=== PATIENT | female | born 1945 | race Caucasian/White ===

== ENCOUNTER → 2016-11-08 | Outpatient (CLI) | payer OTHER ==
--- NOTE | 2016-11-09 08:21 | MAMMOGRAPHY REPORT ---
BILATERAL DIGITAL SCREENING MAMMOGRAM WITH CAD: 11/08/2016 CLINICAL HISTORY: Routine screening. Patient has no complaints. TECHNIQUE: Bilateral CC and MLO views were obtained. Current study was also evaluated with a Compute r Aided Detection (CAD) system. COMPARISON: Comparison is made to exams dated: 10/27/2015 mammogram, 10/13/2014 mammogram, 10/10/2013 m ammogram, 10/05/2012 mammogram, 10/05/2011 mammogram, and 09/24/2010 mammogram - [facility] nter. BREAST COMPOSITION: The tissue of both breasts is heterogeneously dense, which may obscure small mas ses. FINDINGS: There is a focal asymmetry in the upper outer middle to posterior right breast measuring 7 mm. Although this could represent normal overlapping fibroglandular tissue, additional spot lucia jose tomosynthesis views and possibly ultrasound are recommended. An increasingly prominent asymmetr y is seen in the far posterior superior right breast on the MLO view. Additional spot compression to mosynthesis views and possibly ultrasound are also recommended. This is thought to project in the 12 :00 axis. No other suspicious mass, architectural distortion or cluster of microcalcifications is seen bilatera lly. IMPRESSION: ACR BI-RADS CATEGORY 0: INCOMPLETE EVALUATION: NEED ADDITIONAL IMAGING EVALUATION The right breast asymmetries need additional imaging evaluation. The patient will be called to schedule an appointment. Approximately 10% of breast cancers are not detected with mammography. A negative mammographic report should not delay biopsy if a clinically suggestive mass is present. Jossie Cosme M.D. ay/:11/08/2016 17:29:55 Oracle Fusion Middleware Architect: Marilynn CALIXTO(R)(M), [facility] letter sent: Addl Imaging 0 BI-RADS Code: ACR BI-RADS Category 0: Incomplete Evaluation: Need Additional Imaging Evaluation
== END | disposition home or self-care (01) ==
LOC: C.MAMM 09:38
PROVIDERS: ATTEND Nurse Practitioner Adult Health
DX: Z12.31 Encounter for screening mammogram for malignant neoplasm of breast (principal); N64.89 Other specified disorders of breast

== ENCOUNTER → 2016-11-17 | Outpatient (CLI) | payer OTHER ==
--- NOTE | 2016-11-17 13:39 | MAMMOGRAPHY REPORT ---
UNILATERAL RIGHT DIGITAL DIAGNOSTIC MAMMOGRAM TOMOSYNTHESIS AND TARGETED RIGHT ULTRASOUND: 11/17/2016 CLINICAL HISTORY: Callback from screening mammogram for right breast asymmetry. TECHNIQUE: Breast tomosynthesis in addition to standard 2D mammography was performed. Spot compress ion right CC and MLO 2-D and tomosynthesis images were obtained. COMPARISON: Comparison is made to exams dated: 11/08/2016 mammogram, 10/27/2015 mammogram, 10/13/2014 m ammogram, 10/10/2013 mammogram, 03/06/2013 mammogram, and 03/06/2013 ultrasound - [facility]. BREAST COMPOSITION: The tissue of the right breast is heterogeneously dense, which may obscure small masses. FINDINGS: The previously described focal asymmetry in the right upper outer quadrant effaces on the a dditional views, and has the appearance of normal fibroglandular tissue on the tomosynthesis images. The other asymmetry seen within the right 12:00 posterior breast appears similar to prior exams dati ng back to at least 2011 on the additional views, and is considered benign given long-term stability. No suspicious mass or architectural distortion is noted on the additional views. Targeted ultrasound was performed of the right upper outer quadrant in the region of the right breast asymmetry. Sonographically normal tissue is seen, without evidence of a mass or other suspicious so nographic abnormality. IMPRESSION: ACR BI-RADS CATEGORY 2: BENIGN, TARGETED ULTRASOUND ACR BI-RADS CATEGORY 2: BENIGN The right breast asymmetries efface to a baseline appearance on the additional views, without corresp onding suspicious sonographic abnormalities evident. The asymmetries are benign and compatible with normal fibroglandular tissue. There is no mammographic or targeted sonographic evidence of malignanc y. A 1 year screening mammogram is recommended. The patient has been verbally notified of the result s. Approximately 10% of breast cancers are not detected with mammography. A negative mammographic report should not delay biopsy if a clinically suggestive mass is present. Darlin Yoder M.D. ah/:11/17/2016 10:24:09 Drainage Inspector: Cindy ISSA)(Marianne), [facility] letter sent: Normal 1/2 BI-RADS Code: ACR BI-RADS Category 2: Benign Ultrasound BI-RADS: ACR BI-RADS Category 2: Benign
== END | disposition home or self-care (01) ==
LOC: C.MAMM 09:50
PROVIDERS: ATTEND Nurse Practitioner Adult Health
DX: R92.2 Inconclusive mammogram (principal); N64.89 Other specified disorders of breast

== ENCOUNTER → 2017-12-21 | Outpatient (CLI) | payer OTHER ==
[~2017-12-21] MED LIST: GADAVIST IV PRN
--- NOTE | 2017-12-22 15:41 | MAMMOGRAPHY REPORT ---
BREAST MRI OF BOTH BREASTS: 12/21/2017 CLINICAL HISTORY: Recent ultrasound-guided core needle biopsy of the right 8:00 breast mass which yie lded malignancy. COMPARISON: Comparison is made to exams dated: 11/30/2017 ultrasound biopsy, 11/22/2017 ultrasound, 10/27 mammogram, 11/17/2016 ultrasound, 11/17/2016 mammogram, and 11/08/2016 mammogram - [facility]. Technique: The patient was placed prone in a dedicated breast imaging coil. Precontrast axial T1-deandra ghted, axial T2-weighted fat saturation, and axial T1-weighted fat saturation images were obtained. After the administration of 6.5 mL of Gadavist IV contrast, sequential T1-weighted fat saturation lyn ges were obtained. Subtraction images were obtained of the dynamic contrast enhanced sequences, and 3-D reformations were performed. The [employer] software was used for kinetic analysis. Findings: There is moderate background parenchymal enhancement involving bilateral breasts. In the right 8:00 breast posteriorly, there is an enhancing mass with associated washout kinetics which measures 9 x 7 mm and is consistent with the biopsy-proven malignancy (series 16113 image 85). Susceptibility artif act from a biopsy clip is seen within the mass. There are numerous similar-appearing small foci of enhancement seen scattered throughout both breasts , many of which demonstrate a mixed kinetic pattern including washout kinetics, which likely represen t normal background parenchymal enhancement given the multiplicity and bilaterality; note that the pr esence of multiple scattered enhancing foci decreases the sensitivity of the exam. There is a 4 mm f ocus of enhancement in the left anterior subareolar/9:00 periareolar breast, which is slightly more p rominent compared to the other scattered bilateral enhancing foci (series [id number] image 69). The focus demonstrates a mixed kinetic pattern including washout kinetics. Given that the focus is more promi nent than the other scattered bilateral enhancing foci, second look ultrasound is recommended for fur ther evaluation. There is also a 16 mm area of non-mass enhancement in the left breast at approximat juana 3:00, which also demonstrates a mixed kinetic pattern (series 48301 image 75). Although this cou ld represent normal background enhancement, second look ultrasound is also recommended. There is no evidence of axillary adenopathy. The chest wall structures are negative. Visualized ext ramammary soft tissues are grossly unremarkable. IMPRESSION: ACR BI-RADS CATEGORY 0: INCOMPLETE EVALUATION: NEED ADDITIONAL IMAGING EVALUATION 1. Enhancing 9 mm mass in the right 8:00 posterior breast, consistent with the biopsy-proven maligna ncy. 2. Numerous scattered bilateral foci of enhancement, felt to represent normal background parenchymal enhancement although the numerous foci reduces the sensitivity of the exam. 3. Small 4 mm focus of enhancement in the left anterior subareolar/9:00 breast is more prominent cyndee n the other scattered bilateral enhancing foci. Recommend second look ultrasound for further evaluat ion. If a corresponding suspicious abnormality is seen on ultrasound, then ultrasound-guided biopsy could be performed at that time. At that time, recommend second look ultrasound for 16 mm area of no n-mass enhancement in the left 3:00 breast which may represent normal background enhancement (45-60 m inute time slot). Darlin Yoder M.D. ah/:12/21/2017 16:30:44 Global Creative Chairman: learning program manager, [facility] letter sent: Addl Imaging 0 BI-RADS Code: ACR BI-RADS Category 0: Incomplete Evaluation: Need Additional Imaging Evaluation
== END | disposition home or self-care (01) ==
LOC: C.MRI 12:25
PROVIDERS: ATTEND Surgery
DX: Z01.818 Encounter for other preprocedural examination (principal); C50.511 Malignant neoplasm of lower-outer quadrant of right female breast; Z17.0 Estrogen receptor positive status [ER+]

== ENCOUNTER → 2018-01-03 | Outpatient (CLI) | payer OTHER ==
--- NOTE | 2018-01-03 13:55 | Discharge Instructions ---
Discharge Instructions Procedure Procedure Date: Jan 03, 2018. Reason for visit: Left Enhancement/Non-Mass Enhancement-Poss Bx. Discharge Discharge Date: Jan 03, 2018. Discharge Diagnosis: post left breast ultrasound guided core biopsy 9:00 Instructions Activity Recommendations: Additional Limitations (see below) Return to School/Work: no limitations Recommended Home Diet: No Limitations Provider Instructions: ACTIVITY RECOMMENDATIONS: * No lifting, pushing, pulling or exercising the affected side for three days. RETURN TO SCHOOL/WORK: * You may return to work/school after the procedure, but do not perform any strenuous activities for 24 to 48 hours. MEDICATIONS: * Tylenol (two 325 mg) every four to six hours if needed for mild pain (if not allergic to Tylenol). DIET: * Resume previous diet. SPECIAL CARE INSTRUCTIONS: * Keep biopsy site dry for 24 hours. May shower after 24 hours, but do not soak (bathe) incision. May remove Tegaderm (plastic patch) 24 hours after procedure * Leave the steri-strips on for one week. Allow the steri-strips to fall off by themselves. If not off after one week, you may remove them. You may place a Bandaid crosswise over the strips, if desired. * Apply ice 10 minutes on and 10 minutes off as needed. * Wear a bra at bedtime to sleep more comfortably for 2-3 days. * Your referring physician should have the results after approximately 5 to 7 business days. * Call for unusual bleeding, fever, drainage, etc or if you have any questions call [phone] during normal business hours or after hours call Dr Cosme, . FOLLOW UP VISIT: Follow-up with Referring Physician as scheduled. Allergies Coded Allergies: No Known Allergies (Unverified , 12/21/17) [facility] Recommendations: Call your doctor if: * Temperature above 101 degrees * Pain not relieved by pain medicine ordered * There is increased drainage or redness from any incision * You have any unanswered questions or concerns. Your Doctors Instructions noted above were prepared by provider Jossie Cosme. Patient Signature Section: Patient Instructions Signature Page Chelo Dickeyrosie Patient (or Guardian) Signature/Date: I have read and understand the instructions given to me by my caregivers. Caregiver/RN/Doctor Signature/Date: The above-named patient and/or guardian has received patient instructions on this date. + Original Patient Signature Page (only) stays with chart. Please make copy for patient.
--- NOTE | 2018-01-04 15:15 | MAMMOGRAPHY REPORT ---
ULTRASOUND GUIDED BIOPSY LEFT BREAST: 01/03/2018 CLINICAL HISTORY: 72-year-old woman with recently diagnosed right breast cancer underwent bilateral b reast MRI to assess extent of disease and for the possibility of contralateral disease. She was found to have a 4 mm enhancing focus in the 9:00 retroareolar left breast and 16 mm non-mass enhancement i n the 3:00 left breast for which targeted second look ultrasound was performed. She now presents for biopsy of an indeterminate 3.4 mm hypoechoic, possible intraductal mass in the 9:00 left breast. COMPARISON: Comparison is made to exams dated: 12/21/2017 breast MRI, 11/10/2017 mammogram, 11/08/2016 mammogram, 10/27/2015 mammogram, 10/13/2014 mammogram, and 10/10/2013 mammogram - [facility]. PATIENT CONSENT: The procedure, risks and benefits were discussed with the patient and informed conse nt was obtained both verbally and in writing. Specific risks to this procedure include: bleeding, in fection, puncture of adjacent structure, nontarget biopsy, sampling error, pain, metal allergy and me dication reaction. PROCEDURE DESCRIPTION: A time out was performed and the left breast was agreed as the site of biopsy. The skin was prepped and draped in the usual sterile fashion. The solid 3.4 mm mass in the 9:00 left breast was chosen as the target for biopsy. Subcutaneous and intraparenchymal 1% buffered lidocaine, with and without epinephrine, was administered as local anesthesia. A skin incision was made. Throu gh the incision, 5 samples were taken with a 14 gauge Achieve biopsy device. A ribbon shaped metalli c marker was placed at the biopsy site. Hemostasis was achieved after manual compression. The patient tolerated the procedure well and there was no immediate complication. The samples were sent to the pathology department in an appropriately labeled container. Post procedure left CC and ML tomosynthesis and 2D images were obtained. A new ribbon-shaped biopsy marker clip is seen in the 9:00 middle to anterior left breast. No significant post biopsy hematoma. IMPRESSION: ULTRASOUND GUIDED BIOPSY 1. Status post ultrasound-guided core biopsy of an indeterminate 3.4 mm hypoechoic possible intraduct al mass in the 9:00 left breast, with ribbon-shaped biopsy marker clip placed at the site, possibly c orrelating with the MRI finding. 2. A sonographic correlate for the focal non-mass enhancement in the 3:00 left breast was not identi fied during second look ultrasound performed on the same day and an MRI biopsy for that finding was s cheduled before the patient left the department. The patient will receive notification of the biopsy results from her referring physician. Jossie Cosme M.D. ay/:01/03/2018 17:08:20 Attending Technologist: LUIS MANUEL Foy)(M), [facility] Database Technician: Jossie Cosme, [facility]
--- NOTE | 2018-01-04 15:15 | MAMMOGRAPHY REPORT ---
ULTRASOUND OF BOTH BREASTS: 01/03/2018 CLINICAL HISTORY: 72-year-old woman with recently diagnosed right breast carcinoma presents for addit ional Second Look ultrasound, possible ultrasound-guided core biopsy in the left breast first for a 4 mm enhancing focus in the 9:00 subareolar left breast and for a 16 mm focal area of non-mass enhance ment in the 3:00 anterior left breast. COMPARISON: Comparison is made to exams dated: 12/21/2017 breast MRI, 11/10/2017 mammogram, 11/08/2016 mammogram, 10/27/2015 mammogram, 10/13/2014 mammogram, and 10/10/2013 mammogram - [facility]. FINDINGS: Targeted ultrasound was performed in the 9:00, 3:00 and retroareolar/periareolar left breas t. In the 9:00 left breast approximately 2 cm from the nipple, there is an ill-defined taller than w mindi hypoechoic solid-appearing mass associated with a linear tubular structure which could represent a duct, measuring 3.4 x 3.1 x 2.5 mm. It is unclear if this may correlate with the 3.5 mm enhancing focus seen on recent MRI but it is the same size and possibly intraductal in nature. Further charact erization with ultrasound-guided core biopsy is recommended. There is duct ectasia in the retroareolar left breast. 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 Throughout the 2:00, 3:00 and 4:00 left breast, no other suspicious solid or cystic mass or textural difference is seen to correspond with the non-m ass enhancement seen on MRI and therefore MRI guided biopsy is recommended. IMPRESSION: ACR BI-RADS CATEGORY 4: SUSPICIOUS 1. A 3.4 mm hypoechoic possible intraductal mass is identified in the 9:00 left breast, 2 cm from th e nipple, which may possibly correlate with the 4 mm enhancing focus seen on recent breast MRI. Ultr asound-guided core biopsy is recommended for further characterization. This was performed during the same appointment and please refer to a separate report for full detail. 2. No definite sonographic correlate for the 16mm focal non-mass enhancement in the 3:00 anterior le ft breast and therefore MRI guided biopsy is recommended. This was scheduled for the patient prior t o leaving the department. 3. There is retroareolar duct ectasia in the left breast with a probable debris-filled duct in the 1 0:00 retroareolar region. This can be reassessed with follow-up imaging in 6 months, pending patholo gy results from the left breast biopsies. Jossie Cosme M.D. ay/:01/03/2018 17:01:16 Attending Technologist: RT Law(R)(M), [facility] Associate Professor Of Media Arts: Jossie Cosme, [facility] BI-RADS Code: ACR BI-RADS Category 4: Suspicious
--- NOTE | 2018-01-04 15:15 | MAMMOGRAPHY REPORT ---
UNILATERAL LEFT DIGITAL DIAGNOSTIC MAMMOGRAM TOMOSYNTHESIS: 01/03/2018 CLINICAL HISTORY: 72-year-old woman with recently diagnosed right breast carcinoma presents for secon d look ultrasound possible ultrasound-guided core biopsy for a 3.5 mm enhancing focus in the upper in ner anterior left breast and 14 mm of non-mass enhancement in the 3:00 anterior left breast seen on r ecent breast MRI. Please refer to the report from left breast ultrasound-guided core biopsy performed at the same time for full detail. IMPRESSION: POST PROCEDURE IMAGING FOR MARKER PLACEMENT Please refer to the report from left breast ultrasound-guided core biopsy performed at the same time for full detail. Some breast cancers are not detected with mammography. A negative mammographic report should not linda y biopsy if a clinically suggestive mass is present. Jossie Cosme M.D. ay/:01/03/2018 13:58:31 Leather Craftsman: RT Law(Nicholas)(Marianne), [facility] BI-RADS Code: Post Procedure Imaging For Marker Placement
== END | disposition home or self-care (01) ==
LOC: C.MAMM 12:21
PROVIDERS: ATTEND Surgery
DX: R92.8 Other abnormal and inconclusive findings on diagnostic imaging of breast (principal)

== ENCOUNTER → 2018-01-10 | Outpatient (CLI) | payer OTHER ==
[~2018-01-10] MED LIST changes: +LIDO/EPINEPHRINE/SOD BICARB 20 ML VIAL ONE; +LIDOCAINE 1% BUFFERED INJ 20 ML VIAL ONE
--- NOTE | 2018-01-10 08:33 | Discharge Instructions ---
Discharge Instructions Procedure Procedure Date: Jan 10, 2018. Reason for visit: Left Nme. Discharge Discharge Date: Jan 10, 2018. Discharge Diagnosis: status post breast biopsy Instructions Activity Recommendations: Additional Limitations (see below) Return to School/Work: no limitations Recommended Home Diet: No Limitations Provider Instructions: ACTIVITY RECOMMENDATIONS: * No lifting, pushing, pulling or exercising the affected side for three days. RETURN TO SCHOOL/WORK: * You may return to work/school after the procedure, but do not perform any strenuous activities for 24 to 48 hours. MEDICATIONS: * Tylenol (two 325 mg) every four to six hours if needed for mild pain (if not allergic to Tylenol). DIET: * Resume previous diet. SPECIAL CARE INSTRUCTIONS: * Keep biopsy site dry for 24 hours. May shower after 24 hours, but do not soak (bathe) incision. * May remove Tegaderm (plastic patch) 24 hours after procedure * Leave the steri-strips on for one week. Allow the steri-strips to fall off by themselves. If not off after one week, you may remove them. You may place a Bandaid crosswise over the strips, if desired. * Apply ice 10 minutes on and 10 minutes off as needed. * Wear a bra at bedtime to sleep more comfortably for 2-3 days. * Your referring physician should have the results after approximately 5 to 7 business days. * Call for unusual bleeding, fever, drainage, etc or if you have any questions call during normal business hours or after hours call Dr Yoder, . FOLLOW UP VISIT: Follow-up with Referring Physician as scheduled. Allergies Coded Allergies: No Known Allergies (Unverified , 12/21/17) [facility] Recommendations: Call your doctor if: * Temperature above 101 degrees * Pain not relieved by pain medicine ordered * There is increased drainage or redness from any incision * You have any unanswered questions or concerns. Your Doctors Instructions noted above were prepared by provider Darlin Yoder. Patient Signature Section: Patient Instructions Signature Page Chelo Radha Patient (or Guardian) Signature/Date: I have read and understand the instructions given to me by my caregivers. Caregiver/RN/Doctor Signature/Date: The above-named patient and/or guardian has received patient instructions on this date. + Original Patient Signature Page (only) stays with chart. Please make copy for patient.
--- NOTE | 2018-01-11 15:44 | MAMMOGRAPHY REPORT ---
MRI BIOPSY LEFT BREAST: 01/10/2018 CLINICAL HISTORY: Focal non-mass enhancement in the left 3:00 breast on recent MRI, for which no sono graphic correlate was identified. Recent diagnosis of right breast cancer. Post Biopsy. COMPARISON: Comparison is made to exams dated: 01/03/2018 ultrasound biopsy, 12/21/2017 breast MRI, 11/30 mammogram, 11/30/2017 ultrasound biopsy, 11/10/2017 mammogram, and 11/17/2016 ultrasound - [facility]. Technique: Written informed consent was obtained from the patient after discussion of the procedure a s well as risks of MRI guided core needle biopsy. A preprocedural timeout was performed prior to sta rting the procedure. The patient was placed prone on a 1.5 Wilma MR scanner. The lateral aspect of the left breast was cl eansed with ChloraPrep. The left breast was positioned in a dedicated breast coil and MRI guidance g rid device. After localizing sequences were obtained, pre-and postcontrast axial sequences were performed which c onfirm the persistence of the focal non-mass enhancement in the left lateral breast at approximately 3:00. 6.5 cc of Gadavist IV contrast was administered. Using the images, targeting was performed us ing the [employer] software. The skin was prepped with Betadine through the grid and after local anesthesia was achieved, an intro ducer sheath and localizing obturator were placed into the site using a lateral approach. The locati on of the obturator sheath was confirmed with additional images. Subsequently, multiple samples were obtained from the site using a [employer] 9-gauge vacuum-assisted core biopsy device. Through the introducer sheath, a marker clip was placed. Postprocedural images demo nstrate postbiopsy changes in the expected location of the targeted non-mass enhancement. Direct pre ssure was held at the biopsy site until hemostasis was achieved. The patient tolerated the procedure without immediate complication. Mammography was obtained at the breast center after completion of the biopsy to confirm marker clip placement. Postprocedural left C C and ML tomosynthesis images were obtained which shows a new dumbbell-shaped biopsy marker clip in t he expected location of the biopsy non-mass enhancement in the left breast at approximately 3:00. No significant postbiopsy hematoma is seen on the postprocedural mammograms. The specimens were sent t o pathology for analysis. Wound care instructions were given to the patient. The procedure was performed by Dr. Yoder. IMPRESSION: MRI BIOPSY MRI guided core needle biopsy of the focal non-mass enhancement in the left 3:00 breast, with clip pl acement. The patient will receive pathology results from her referring provider. Jossie Yoder M.D. ay,/:01/10/2018 14:14:15 Sandstone Inspector Repairer: maintenance job titles, [facility]; Marilynn Blanca RT(R)(M), [facility]
== END | disposition home or self-care (01) ==
LOC: C.MRI 06:49
PROVIDERS: ATTEND Surgery
DX: R92.8 Other abnormal and inconclusive findings on diagnostic imaging of breast (principal); N60.92 Unspecified benign mammary dysplasia of left breast